=== PATIENT | male | born 1960 | race Caucasian/White ===

== ENCOUNTER → 2017-06-26 | Outpatient (CLI) | payer MEDICAID ==
[~2017-06-26] MED LIST: CIPR500T2 PO; PYRI200T4 PO; Z.0.NO CURRENT MEDS
--- NOTE | 2017-06-27 19:16 | EKG ---
Date Performed: 06/26/2017 Time Performed: 15:00:52 PTAGE: 57 years EKG: Sinus rhythm . Normal ECG NO PREVIOUS TRACING DOCTOR: Kane Deluca Interpretating Date/Time 06/27/2017 19:13:57
== END ==
LOC: HCAV 14:53
DX: Z01.818 Encounter for other preprocedural examination (principal)
CPT/HCPCS: 93005